=== PATIENT | female | born 1980 | race Caucasian/White ===

== ENCOUNTER 2017-06-09 13:43 | Emergency (ER) | payer OTHER ==
[2017-06-09 13:52] VITALS: BP 129/86; BMI 35.9
[2017-06-09] MEDS ORDERED: ZOFRAN INJ 4 MG VIAL IM ONE (14:50)
[2017-06-09] MEDS ORDERED: DEMEROL INJ IM ONE (14:50)
--- NOTE | 2017-06-09 14:53 | DR.HEADACH ---
HPI - Time Seen Time seen: 14:50 - Primary Care Physician Primary Care Physician: Jorge Mayberry - HPI Comment HPI Comment: HOME MEDS DID NOT HELP. GETTING WORSE. PHOTOPHOBIA PRESENT WITH NAUSE AND VOMITING. - Complaint/Symptoms Chief Complaint Doctors Comments: MIGRAINE HEADACHE FOR HOURS. Chief Complaint:: Woke up with migraine this am. Pertinent History: Headache Self Treatment fo Chief Complaint: Prescription med for mirgraines and Excedrin - Reviewed Nurses Notes Reviewed: Yes - Source History Provided: Patient - Mode of Arrival Mode of Arrival: Ambulatory - Timing Onset of Chief Complaint: 06/09/17 - Duration Since Onset: Constant Duration: Hours - Location Headache Location: Frontal - Quality Quality: Throbbing - Severity Headache Severity: Severe - Context Headache Onset Circumstances: Spontaneous History of: None Prior Work Up: CT - Modifying Factors Worsens: Nothing - Associated Signs and Symptoms Associated Symptoms: Nausea, Vomitting, Photophobia Aura: Visual PMH - PMH Past Medical History: Yes Past Medical History: Migraines Past Surgical History: Yes Past Surgical History Comment: tubal - Family History History of Family Medical Conditions: Yes Family Medical History: Cancer, Hypertension - Social History Does patient currently use any type of tobacco product: No Have you used tobacco products in the last 12 months: No Type of Tobacco Use: None Does any household member use tobacco: No Alcohol Use: None Do you use any recreational Drugs:: No Lives With: Spouse Lives Where: Home - infectious screening In the last 2 months have you had wt loss of >10#?: NO Have you had fever, night sweats or hemotysis?: No Have you traveled outside the country in the last 6 months?: No Isolation: Standard ROS - Review of Systems Constitutional: No Symptoms Reported Eyes: No Symptoms Reported ENTM: No Symptoms Reported Respiratoy: No Symptoms Reported Cardiovascular: No Symptoms Reported Gastrointestinal/Abdominal: No Symptoms Reported Genitourinary: No Symptoms Reported Neurological: Headache Musculoskeletal: No Symptoms Reported Integumentary: No Symptoms Reported Hematologic/Lymphatic: No Symptoms Reported Endocrine: No Symptoms Reported All Other Systems: Reviewed and Negative PE - Vital Signs Vitals: Temperature 98.0 F Pulse Rate 86 Respiratory Rate 20 Blood Pressure [Right Arm] 128/79 Blood Pressure [Left Arm] 114/64 Blood Pressure 129/86 O2 Sat by Pulse Oximetry 97 - General Limitations: No Limitations General Appearance: Alert - Head Head Exam: Normal Inspection - Eyes Eye exam: Normal Appearance Eyelids: Normal Inspection: Bilateral Pupils: Regular, Round: Bilateral, Reactive: Bilateral Sclera/Conjunctival: Normal Inspection: Bilateral - ENT ENT Exam: Normal External Ear Exam External Ear Exam: Normal External Inspection TM/Canal Exam: Bilateral Normal Nose Exam: Normal Nose Exam Mouth Exam: Normal Inspection Teeth Exam: Normal Inspection Throat Exam: Normal Inspection - Neck Neck Exam: Trachea Midline - Chest Chest Inspection: Symmetric Chest Wall Rise - Respiratory Respiratory Exam: Normal Lung Sounds Bilat Respiratory Exam: Bilateral Clear to Auscultation - Cardiovascular Cardiovascular Exam: Regular Rate, Normal Rhythm, Normal Heart Sounds - Abdominal Exam Abdominal Exam: Normal Bowel Sounds, Soft. negative: Tenderness - Extremities Extremities Exam: Normal Inspection - Back Back Exam: Normal Inspection - Neurologic Neurological Exam: Alert, Oriented X3, CN II-XII Intact, Normal Gait, Reflexes Normal. negative: Motor Sensory Deficit - Psychiatric Psychiatric Exam: Normal Affect, Normal Mood - Skin Skin Exam: Normal Color MDM - Additional Information Obtained Additional Information Obtained From: Family - Differential Diagnosis Differential Diagnosis: Considerations may include:: Migraine Course - Treatment Treatment: SEE ORDERS. - Education/Counseling Education/Counseling: Patient, Family, Education Educated On: Treatment, Diagnosis, Needs for Follow Up - Diagnosis Discharge Problem: Migraine Qualifiers: Migraine type: with aura Status migrainosus presence: without status migrainosus Intractability: intractable Qualified Code(s): G43.119 - Migraine with aura, intractable, without status migrainosus - Discharge Plan Disposition: 01 HOME, SELF-CARE Condition: Stable - Follow ups/Referrals Follow ups/Referrals: JORGE MAYBERRY [Primary Care Provider] - 3 days - Instructions Instructions: Migraine Headache Additional Instructions: RETURN TO ED IF WORSE.
[2017-06-09] MEDS ORDERED: ZOFRAN INJ 4 MG VIAL ONE (15:05)
[2017-06-09] MEDS ORDERED: DEMEROL INJ ONE (15:05)
== END 2017-06-09 15:21 | disposition home or self-care (01) ==
LOC: ER 13:54
DX: G43.119 Migraine with aura, intractable, without status migrainosus (principal)
CPT/HCPCS: 96372; 99282; J2175; J2405

== ENCOUNTER 2017-09-15 10:51 | Emergency (ER) | payer OTHER ==
[2017-09-15 10:55] VITALS: BP 125/87; BMI 35.9
--- NOTE | 2017-09-15 11:13 | DR.GENAD ---
HPI - PCP Primary Care Physician: Aldo - HPI Comment HPI Comment: HISTORY MIGRAINE HEADACHE. PREVIOUS NORMAL HEAD CT LAST YEAR. - Complaint/Symptoms Chief Complaint Doctors Comments: HEADACHE TIME ONE WITH NAUSEA AND VOMITING. Chief Complaint:: "Since about 12 last night I have been having a bad migraine. I have vomitted about 10 times already." Self Treatment fo Chief Complaint: Oncerta - Home medication - Nurses notes reviewed Nurses Notes Review: Yes - Source History Provided: Patient - Mode of Arrival Mode of Arrival: Ambulatory - Timing Onset of Chief Complaint: 09/14/17 Came on: Suddenly - Duration Duration: Constant Duration: Hours - Severity Severity: Moderate PMH - PMH Past Medical History: Yes Past Medical History: Migraines Past Surgical History: Yes Surgical History: [employer]ATION [employer] Surgery - Family History History of Family Medical Conditions: Yes Family Medical History: Cancer, Hypertension - Social History Does patient currently use any type of tobacco product: No Have you used tobacco products in the last 12 months: No Type of Tobacco Use: None Does any household member use tobacco: No Alcohol Use: None Do you use any recreational Drugs:: No Lives With: Spouse Lives Where: Home - infectious screening In the last 2 months have you had wt loss of >10#?: NO Have you had fever, night sweats or hemotysis?: No Have you traveled outside the country in the last 6 months?: No Isolation: Standard ROS - Review of Systems Constitutional: No Symptoms Reported Eyes: No Symptoms Reported ENTM: No Symptoms Reported Respiratoy: No Symptoms Reported Cardiovascular: No Symptoms Reported Gastrointestinal/Abdominal: Nausea, Vomiting Genitourinary: No Symptoms Reported Neurological: Headache Musculoskeletal: No Symptoms Reported Integumentary: No Symptoms Reported Hematologic/Lymphatic: No Symptoms Reported Endocrine: No Symptoms Reported All Other Systems: Reviewed and Negative PE - Vital Signs Vitals: Temperature 97.6 F Pulse Rate 76 Respiratory Rate 18 Blood Pressure [Right Arm] 128/79 Blood Pressure [Left Arm] 114/64 Blood Pressure 125/87 O2 Sat by Pulse Oximetry 97 - General Limitations: No Limitations General Appearance: Alert - Head Head Exam: Normal Inspection - Eyes Eye exam: Normal Appearance - ENT ENT Exam: Normal External Ear Exam External Ear Exam: Normal External Inspection TM/Canal Exam: Bilateral Normal Nose Exam: Normal Nose Exam Mouth Exam: Normal Inspection Throat Exam: Normal Inspection - Neck Neck Exam: Normal Inspection - Chest Chest Inspection: Symmetric Chest Wall Rise - Respiratory Respiratory Exam: Normal Lung Sounds Bilat Respiratory Exam: Bilateral Clear to Auscultation - Cardiovascular Cardiovascular Exam: Regular Rate, Normal Rhythm, Normal Heart Sounds - Abdominal Exam Abdominal Exam: Normal Bowel Sounds, Soft. negative: Tenderness - Extremities Extremities Exam: Normal Inspection - Back Back Exam: Normal Inspection - Neurologic Neurological Exam: Alert, Oriented X3 - Skin Skin Exam: Erythema MDM - Additional Information Additional Information Obtained From: Family - Differential Diagnosis Differential Diagnosis: MIGRAINE HEADACHE. Course - Treatment Treatment: SEE ORDERS. - Reevaluation 1st: Improved (IM PAIN MED, PAIN IMPROVED.) - Education/Counseling Education/Counseling: Patient, Education Educated On: Treatment, Diagnosis - Diagnosis Discharge Problem: Migraine Qualifiers: Migraine type: without aura Status migrainosus presence: without status migrainosus Intractability: intractable Qualified Code(s): G43.019 - Migraine without aura, intractable, without status migrainosus - Discharge Plan Disposition: 01 HOME, SELF-CARE Condition: Stable - Follow ups/Referrals Follow ups/Referrals: JA TOSCANO [Primary Care Provider] - 3 days - Instructions Instructions: Migraine Headache, [id number] Additional Instructions: RETURN TO ED IF WORSE. CONTINUE WITH HOME MEDS INSTRUCTED.
[2017-09-15] MEDS ORDERED: DEMEROL INJ IM ONE (11:24)
[2017-09-15] MEDS ORDERED: PHENERGAN INJ 25 MG IM ONE (11:24)
[2017-09-15] MEDS ORDERED: PHENERGAN INJ 25 MG ONE (11:27)
[2017-09-15] MEDS ORDERED: DEMEROL INJ ONE (11:27)
== END 2017-09-15 11:40 | disposition home or self-care (01) ==
LOC: ER 10:57
DX: G43.019 Migraine without aura, intractable, without status migrainosus (principal)
CPT/HCPCS: 96372; 99282; J2175; J2550